=== PATIENT | female | born 1960 | race Caucasian/White ===

== ENCOUNTER → 2017-04-22 | Outpatient (CLI) | payer BC, OTHER ==
--- NOTE | 2017-04-30 18:52 | PCVCIMAG ---
APPROVED REPORT Study performed: 04/22/2017 10:56:58 EXAM: Comprehensive 2D, Doppler, and color-flow Echocardiogram 2D Dimensions LVEF(%): 60.54 (>50%) IVSd: 9.66 (7-11mm)LVOT Diam: 19.59 (18-24mm) LVDd: 45.89 mm PWd: 7.79 (7-11mm)Ascending Ao: 29.38 (22-36mm) LVDs: 31.09 (25-40mm) Left Atrium: 35.18 (27-40mm) Aortic Root: 21.41 mm LV Single Plane 4CH: 64.10 % LV Single Plane 2CH: 53.09 %Sloan's LVEF: 58.60 % Biplane EF: 60.3 % Volumes Left Atrial Volume (Systole) Single Plane 4CH: 59.10 mLSingle Plane 2CH: 72.59 mL LA ESV Index: 32.00 mL/m2 Aortic Valve AoV Peak Lyle.: 1.34 m/s AO Peak Gr.: 7.13 mmHgLVOT Max P.83 mmHg LVOT Max V: 0.98 m/s NICKY Vmax: 2.21 cm2 Mitral Valve E/A Ratio: 1.4 MV Decel. Time: 199.91 ms MV E Max Lyle.: 0.78 m/s MV A Lyle.: 0.55 m/s IVRT: 114.19 ms TDI E/Lateral E': 0.06E/Medial E': 0.09 Medial E' Lyle.: 9.00 m/s Lateral E' Lyle.: 13.00 m/s Pulmonary Valve PV Peak Lyle.: 0.88 m/sPV Peak Gr.: 3.07 mmHg Pulmonary Vein P Vein S: 0.57 m/sP Vein A: 0.27 m/s P Vein D: 0.38 m/sP Vein A Dur.: 103.8 msec P Vein S/D Ratio: 1.50 Tricuspid Valve TR Peak Lyle.: 1.97 m/s TR Peak Gr.: 15.47 mmHg TV Vmax: 0.66 m/sPA Pressure: 22.00 mmHg Left Ventricle The left ventricle is normal size. There is normal LV segmental wall motion. There is normal left ventricular wall thickness. Left ventricular systolic function is normal. The left ventricular ejection fraction is within the normal range. LVEF is 55-60%. The left ventricular diastolic function is normal. Right Ventricle The right ventricle is normal size. The right ventricular systolic function is normal. Atria The left atrium size is normal. The right atrium size is normal. Aortic Valve The aortic valve is normal in structure. Trivial aortic regurgitation is present. There is no aortic valvular stenosis. Mitral Valve The mitral valve is normal in structure. There is no mitral valve regurgitation noted. No evidence of mitral valve stenosis. Tricuspid Valve The tricuspid valve is normal in structure. Trivial tricuspid valve regurgitation noted. Pulmonic Valve The pulmonary valve is normal in structure. Trivial pulmonic valvular regurgitation. Great Vessels The aortic root is normal in size. The ascending aorta is normal in size. IVC is normal in size and collapses with >50% inspiration Pericardium There is no pericardial effusion. <Conclusion> The left ventricle is normal size. There is normal left ventricular wall thickness. Left ventricular systolic function is normal. The left ventricular ejection fraction is within the normal range. LVEF is 55-60%. The right ventricle is normal size. The left atrium size is normal. The aortic valve is normal in structure. The mitral valve is normal in structure. IVC is normal in size and collapses with >50% inspiration There is no pericardial effusion.
== END | disposition home or self-care (01) ==
LOC: PCVCIMAG 10:38
PROVIDERS: ATTEND Internal Medicine Cardiovascular Disease
DX: I34.0 Nonrheumatic mitral (valve) insufficiency (principal)
CPT/HCPCS: 93017; 93306

== ENCOUNTER → 2017-05-08 | Outpatient (CLI) | payer OTHER ==
--- NOTE | 2017-05-09 23:41 | PCVCIMAG ---
EXAM: BILATERAL LOWER EXTREMITY ARTERIAL DUPLEX INDICATION: Peripheral Arterial Disease. Leg pain. FINDINGS: Right Leg: Satisfactory arterial waveforms throughout the common/profunda/superficial femoral, popliteal, anterior tibial, peroneal, and posterior tibial arteries. No flow limiting stenosis seen. Left Leg: Satisfactory arterial waveforms throughout the common/profunda/superficial femoral, popliteal, anterior tibial, peroneal, and posterior tibial arteries. No flow limiting stenosis seen. IMPRESSION: No flow limiting stenosis in the right lower extremity. No flow limiting stenosis in the left lower extremity. LOC:OFFICE
== END | disposition home or self-care (01) ==
LOC: PCVCIMAG 14:29
PROVIDERS: ATTEND Internal Medicine Cardiovascular Disease
DX: I73.9 Peripheral vascular disease, unspecified (principal)
CPT/HCPCS: 93925

== ENCOUNTER → 2018-05-21 | Outpatient (CLI) | payer OTHER | END | disposition home or self-care (01) | LOC: PCVCIMAG 15:12 | DX: I65.21 Occlusion and stenosis of right carotid artery (principal); K82.4 Cholesterolosis of gallbladder; K76.89 Other specified diseases of liver; R06.00 Dyspnea, unspecified; I25.5 Ischemic cardiomyopathy; I10 Essential (primary) hypertension; E78.5 Hyperlipidemia, unspecified; Z82.49 Family history of ischemic heart disease and other diseases of the circulatory system | CPT/HCPCS: 76700; 93325; 93351; 93880 ==

== ENCOUNTER → 2019-06-04 | Outpatient (CLI) | payer BC ==
--- NOTE | 2019-06-04 10:09 | PCVCIMAG ---
EXAM: BILATERAL CAROTID DUPLEX INDICATION: Carotid Occlusive Disease. FINDINGS: Doppler Measurements (centimeters per second): RIGHT: Peak CCA-75, Peak ECA-61, Diastolic ICA-32, Peak ICA-75, ICA/CCA Ratio-1.0. LEFT: Peak CCA-77, Peak ECA-103, Diastolic ICA-39, Peak ICA-104, ICA/CCA Ratio-1.3. RIGHT CAROTID: The carotid bulb has moderate plaque. The proximal internal carotid artery shows <40% stenosis. The common carotid artery shows no significant stenosis. The external carotid artery shows no significant stenosis. LEFT CAROTID: The carotid bulb has mild plaque. The proximal internal carotid artery shows <40% stenosis. The common carotid artery shows no significant stenosis. The external carotid artery shows no significant stenosis. Antegrade flow in both vertebral arteries. IMPRESSION: <40% stenosis of the right internal carotid artery with moderate plaque. <40% stenosis of the left internal carotid artery with mild plaque. LOC:[place] [id number]
--- NOTE | 2019-06-04 10:19 | PCVCIMAG ---
EXAM: ABDOMINAL ULTRASOUND COMPLETE INDICATION: Hepatic and renal lesions. FINDINGS: Gallbladder: No gallstones. No wall thickening or abnormal pericholecystic fluid. 7.3 x 8.2 mm echogenic focus in the neck of the gallbladder consistent with gallbladder polyp is unchanged since 2018 and 2015 studies. Liver: Normal in size measuring 15.5 cm in length. 2.9 x 3.5 x 4.4 cm solid mass inferior right hepatic lobe is mildly echogenic and well-defined and indeterminate. Minimal if any change since 2018 and 2015 studies. Bile ducts: No intra or extra hepatic bile duct dilatation. The common bile duct measures 4.2 mm. Pancreas: Unremarkable where seen. Spleen: Normal in size measuring 10.4 cm in greatest dimension. No focal masses. Right kidney: No hydronephrosis. Length measures 10.9 cm. There is a 1.9 x 2.1 cm well-defined echogenic solid lesion inferior right kidney and a second 0.8 x 1.1 cm focal echogenic nonshadowing lesion mid right kidney. 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 No significant change since [address] examination could likely confirm fat within the lesions if needed clinically. Left kidney: No hydronephrosis. Length measures 10.9 cm. Inferior vena cava: Normal in size where seen. Aorta: Normal in caliber where seen. IMPRESSION: 1. 2.1 cm indeterminate echogenic solid lesion inferior right kidney and second 1.1 cm echogenic lesion mid right kidney showing minimal change since 2015 at 2018 studies. Further evaluation with CT to confirm the presence of fat and confirm the diagnosis event or myolipoma may be helpful. 2. Unchanged 8.2 mm gallbladder polyp. 3. Unchanged 4.4 cm solid lesion inferior right hepatic lobe. LOC:[id number]
== END | disposition home or self-care (01) ==
LOC: PCVCIMAG 08:08
PROVIDERS: ATTEND Internal Medicine Cardiovascular Disease
DX: I65.23 Occlusion and stenosis of bilateral carotid arteries (principal); Z88.1 Allergy status to other antibiotic agents; K82.4 Cholesterolosis of gallbladder
CPT/HCPCS: 76700; 93880